=== PATIENT | female | born 1995 | race Caucasian/White ===

== ENCOUNTER → 2016-09-03 | Outpatient (CLI) | payer BC ==
[~2016-09-03] MED LIST: ASPI-999 PO; CHOL20002 PO; CYCL1DRO OP; FLUT9.9S NS; LORA10TA76 PO; PREN1TAB19 PO
--- OUTSIDE RECORDS SUMMARY | 2016-09-03 09:40 | XMS REPORT | Continuity of Care Document ---
Author Author [facility] Organization [facility] Address Unknown Phone Unavailable Care Team Providers Care Hydroelectric Station Operator Name Role Phone Self, Referral PCP Unavailable Source Comments Some departments are not documenting in the electronic medical record. If you do not see the information that you expected, contact Release of Information in the Health Information Management department at [phone] for further assistance in locating additional records.[facility] Active Allergies and Adverse Reactions No Known Allergies Current Medications Prescription Sig. Disp. Refills Start End Date Status Date olopatadine(+) (PATADAY) Place 1 Drop into or Active 0.2 % ophthalmic solution around eye(s) daily. levonorgestrel/ethinyl Take 1 Tab by mouth Active estradiol (AVIANE-28, daily. ALESSE-28) 0.1 mg/20 mcg tablet naproxen sodium(+) Take by mouth. Active (ALEVE) 220 mg tablet ibuprofen (MOTRIN) 200 mg Take 200 mg by mouth Active tablet every 6 hours as needed. loratadine/pseudoephedrin Take 1 Tab by mouth twice Active e (CLARITIN-D 12 HOUR) daily. 5/120 mg tablet Active Problems Problem Noted Date Sicca syndrome (HCC) 02/27/2013 Elevated antinuclear antibody (BALDO) level 02/03/2013 Fatigue 02/03/2013 Myalgia 02/03/2013 Polyarthralgia 02/03/2013 Social History Tobacco Use Types Packs/Day Years Used Date Never Smoker Last Filed Vital Signs Vital Sign Reading Time Taken Blood Pressure 155/96 02/25/2013 10:52 AM CDT Pulse 101 02/25/2013 10:52 AM CDT Temperature 36.7 C (98.1 F) 02/25/2013 10:52 AM CDT Respiratory Rate 19 02/25/2013 10:52 AM CDT Height 1.697 m (5' 6.8") 02/25/2013 10:52 AM CDT Weight 97.07 kg (214 lb) 02/25/2013 10:52 AM CDT Body Mass Index 33.71 02/25/2013 10:52 AM CDT Oxygen Saturation - - Plan of Care Health Maintenance Due Date Last Done Comments Physical (Comprehensive) 2000 Exam Hpv Vaccines (#1) 2004 Pertussis Vaccine 2004 Tetanus Vaccine 2010 Cervical Cancer Screening 2014 Influenza Vaccine 02/21/2016 Results from Last 3 Months Not on file
--- NOTE | 2016-09-03 15:43 | Diagnostic Imaging Report ---
INDICATION: Chronic maternal hypertension during third trimester. TECHNIQUE: Multiple real-time grayscale images were obtained of the gravid uterus. CORRELATION STUDY: None. FINDINGS: Single viable intrauterine , currently in cephalic presentation. There appears to be normal amount of amniotic fluid. Placenta is anterior and without evidence for previa. anatomical evaluation is not performed. Biometrical measurements are as follows: Biparietal diameter 7.20 cm, age 29 weeks 0 days. Head circumference 27.48 cm, age 30 weeks 1 day. Abdominal circumference 23.68 cm, age 28 weeks 0 days. Femur length 5.76 cm, age 30 weeks 2 days. Sonographic estimated age: 29 weeks 3 days. Sonographic estimated date of delivery: November 16, 2016. heart rate: 146 BPM Estimated Weight: 1316 gm (+/- 192 gm) LMP Percentile: 31% IMPRESSION: 1. Single intrauterine in a cephalic presentation. Sonographic estimated age of 29 weeks 3 days for an estimated date of delivery of November 16, 2016. Dictated by: Dictated on workstation # [id number]
== END ==
LOC: RAD 09:37
PROVIDERS: ATTEND Obstetrics & Gynecology
DX: O10.913 Unspecified pre-existing hypertension complicating pregnancy, third trimester (principal); Z3A.29 29 weeks gestation of pregnancy
CPT/HCPCS: 76816

== ENCOUNTER 2016-10-11 23:42 | Outpatient (CLI) | payer BC ==
[~2016-10-11] VITALS: Ht 167.6 cm; Wt 119.7 kg
[2016-10-12 00:07] VITALS: BP 141/82
[2016-10-12] MEDS ORDERED: ASPI-999 PO (00:14)
[2016-10-12] MEDS ORDERED: PREN1TAB19 PO (00:14)
[2016-10-12] MEDS ORDERED: CYCL1DRO OP (00:14)
[2016-10-12] MEDS ORDERED: FLUT9.9S NS (00:14)
[2016-10-12] MEDS ORDERED: LORA10TA76 PO (00:14)
[2016-10-12] MEDS ORDERED: CHOL20002 PO (00:14)
[2016-10-12 00:17] LABS: BILIRUBIN,URINE NEGATIVE (NEGATIVE); KETONES,URINE NEGATIVE (NEGATIVE); LEUKOCYTE ESTERASE ,URINE 1+ (NEGATIVE); NITRITE,URINE NEGATIVE (NEGATIVE); PH,URINE 8 (5-9); PROTEIN,URINE NEGATIVE (NEGATIVE); UROBILINOGEN,URINE NORMAL (NORMAL)
[2016-10-12 00:22] VITALS: BP 149/79
[2016-10-12 00:32] LABS: WBC,URINE RARE /HPF
[2016-10-12 00:42] VITALS: BP 153/90
[2016-10-12 00:51] VITALS: BP 152/88
--- NOTE | 2016-10-14 10:46 | Physician Query-Final Dx ---
RASHAWN GONZALEZ 10/14/16 1046: Clinic Account Progress/Dx Physician Query: Please give diagnosis Date of Service Oct 11, 2016 at 23:42 ANTONI RIVERA MD 10/14/16 1153: Clinic Account Progress/Dx DIAGNOSIS: Diagnosis Pelvic pressure in third trimester RASHAWN GONZALEZ Oct 14, 2016 10:46 ANTONI RIVERA MD Oct 14, 2016 11:53
== END 2016-10-12 01:15 | disposition home or self-care (01) ==
LOC: LDRP 23:42 → WSo 23:42
PROVIDERS: ATTEND Obstetrics & Gynecology
DX: O99.89 Other specified diseases and conditions complicating pregnancy, childbirth and the puerperium (principal); R10.2 Pelvic and perineal pain; Z3A.34 34 weeks gestation of pregnancy
CPT/HCPCS: 81000; 99213

== ENCOUNTER 2016-10-28 13:00 | Outpatient (RCR) | payer BC ==
--- NOTE | 2016-09-30 14:44 | Diagnostic Imaging Report ---
INDICATION: Evaluate growth, maternal hypertension. COMPARISON: None. DISCUSSION: Sonographic evaluation of the gravid uterus was performed. Single live intrauterine at 32 weeks 4 days by sonographic measurements. EDC by today's ultrasound is 11/21/2016. presentation is cephalic. Normal amniotic fluid index. Grade 2 placenta is located anteriorly with no placenta previa. heart rate measures 149 beats per minute. The cervix measures 5.1 cm. Biparietal diameter measures 8.3 cm. Head circumference measures 30.2 cm. Abdominal circumference measures 28.4 cm. Femur length measures 5.8 cm. There is normal breathing, movement, posture and tone, and a normal amniotic fluid index for a biophysical profile score of 8/8. Amniotic fluid index measures 12.8 cm. IMPRESSION: 1. Single live intrauterine at 32 weeks 4 days by sonographic measurements. 2. Normal biophysical profile score of 8/8. Dictated by: Dictated on workstation # [id number]
--- NOTE | 2016-10-07 17:15 | Diagnostic Imaging Report ---
INDICATION: Maternal hypertension, evaluate growth. COMPARISON: 09/30/2016. DISCUSSION: Transabdominal sonographic evaluation of the gravid uterus was performed. Single live intrauterine at 34 weeks 2 days by sonographic measurements. EDC by today's ultrasound is 11/16/2016. presentation is cephalic. Normal amniotic fluid index measuring 9.2 cm. Grade 2 placenta is located anteriorly with no placenta previa. heart rate measures 163 beats per minute. Estimated weight is 2291 g. Biparietal diameter measures 8.3 cm. Head circumference measures 32 cm. Abdominal circumference measures 29.7 cm. Femur length measures 6.5 cm. There was normal breathing, movement, posture and tone, and a normal amniotic fluid index for a normal biophysical profile score of 8/8. IMPRESSION: 1. Single live intrauterine at 34 weeks 2 days by sonographic measurements. 2. Normal biophysical profile score of 8/8. Dictated by: Dictated on workstation # [id number]
--- NOTE | 2016-10-14 17:39 | Diagnostic Imaging Report ---
OB ultrasound. Biophysical profile. INDICATION: O10.913. FINDINGS: The heart rate is 161 beats per minute. presentation is cephalic. Total biophysical profile score is 8 out of 8. The GISELA however is at 5.2. This is compared to 9.2 cm on 10/07/2016. IMPRESSION: Borderline oligohydramnios. Total biophysical profile score is 8 out of 8. Dictated by: Dictated on workstation # [id number]
--- NOTE | 2016-10-21 15:21 | Diagnostic Imaging Report ---
Indication: Maternal hypertension. Comparison: 10/14/2016. Discussion: Transabdominal sonographic evaluation of the gravid uterus was performed. Single live intrauterine is again demonstrated. There is normal breathing, movement, posture and tone, and a normal amniotic fluid index measuring 9.8 cm for a normal biophysical profile score of 8/8, unchanged. presentation is cephalic. heart rate measures 161 beats per minute. Impression: 1. Normal biophysical profile score of 8/8, unchanged. Dictated by: Dictated on workstation # [id number]
--- NOTE | 2016-10-28 16:55 | Diagnostic Imaging Report ---
INDICATION: Growth followup and biophysical profile. TECHNIQUE: Multiple real-time grayscale images were obtained over the gravid uterus. COMPARISON: 10/21/2016 FINDINGS: heart rate is 153 beats per minutes. Placenta is anterior. No placenta previa. position is cephalic. GISELA is 6.6 cm. Biophysical profile criteria are met with total score of 8 out of 8. Biometrical measurements are as follows: Biparietal 9.1 cm, age 37 weeks 0 days. Head circumference 32.8 cm, age 37 weeks 2 days. Abdominal circumference 33.0 cm, age 37 weeks 0 days. Femur length 7.0 cm, age 36 weeks 1 days. Sonographic estimate age: 36 weeks 6 days. Sonographic estimated date of delivery: 11/19/16. Estimated Weight: 3016 gm (+/- +/-16 gm). LMP percentile: 49%. heart rate: 153 beats per minute. number: 1 of 1. IMPRESSION: Biophysical profile score is 8 out of 8. The GISELA is near the lower limits of normal at 6.6 cm. Dictated by: Dictated on workstation # [id number]
[2016-11-05] MEDS ORDERED: OXYC-197 PO (16:32)
[2016-11-05] MEDS ORDERED: IBUP-1773 PO (16:32)
[2016-11-05] MEDS ORDERED: DOCU-143 PO (16:32)
[2016-11-05] MEDS ORDERED: FERR-74 PO (16:33)
== END 2016-12-29 | disposition home or self-care (01) ==
LOC: RAD 13:00
PROVIDERS: ATTEND Obstetrics & Gynecology
DX: O10.913 Unspecified pre-existing hypertension complicating pregnancy, third trimester; Z3A.32 32 weeks gestation of pregnancy
CPT/HCPCS: 76805; 76819

== ENCOUNTER 2016-11-04 19:54 | Inpatient (IN) | payer BC ==
[2016-11-04] VITALS (7 sets, daily range): BP systolic 132–166; BP diastolic 78–95
[~2016-11-04] VITALS: Ht 167.6 cm; Wt 119.8 kg
[2016-11-04] MEDS ORDERED: AMPICILLIN INJECTION 2,000 MG in NS (IVPB) 50 ML IV SCH ×2 (20:44→20:46)
[2016-11-04] MEDS ORDERED: LACTATED RINGERS 1,000 ML IV SCH (20:46)
[2016-11-04] MEDS ORDERED: AMPICILLIN 2000 MG INJECTION (IM/IV) ONE (21:00)
[2016-11-04] MEDS ORDERED: MINERAL OIL CONCENTRATE 99.9% 15 ML UDC TOP PRN (21:00)
[2016-11-04] MEDS ORDERED: NS (IVPB) 50 ML ONE (21:00)
[2016-11-04 21:11] LABS: BILIRUBIN,URINE NEGATIVE (NEGATIVE); KETONES,URINE NEGATIVE (NEGATIVE); LEUKOCYTE ESTERASE ,URINE NEGATIVE (NEGATIVE); NITRITE,URINE NEGATIVE (NEGATIVE); PH,URINE 6 (5-9); PROTEIN,URINE NEGATIVE (NEGATIVE); UROBILINOGEN,URINE NORMAL (NORMAL)
[2016-11-04 21:19] LABS: SQUAMOUS EPITHELIAL CELL,UR 0-2 /HPF; WBC,URINE RARE /HPF
[2016-11-04 21:19] LABS: BASOPHILS % (AUTO) 0 % (0-10); EOSINOPHILS # (AUTO) 0.1 10^3/uL (0.0-0.3); EOSINOPHILS % (AUTO) 1 % (0-10); LYMPHOCYTES # (AUTO) 2.4 X 10^3 (1.0-4.0); LYMPHOCYTES % (AUTO) 23 % (12-44); MEAN CORPUSCULAR HEMOGLOBIN 30 PG (25-34); MEAN CORPUSCULAR HGB CONC 33 G/DL (32-36); MEAN CORPUSCULAR VOLUME 92 FL (80-99); MEAN PLATELET VOLUME 11.7 FL (7.4-10.4); MONOCYTES # (AUTO) 0.7 X 10^3 (0.0-1.0); MONOCYTES % (AUTO) 7 % (0-12); NEUTROPHILS # (AUTO) 7.1 X 10^3 (1.8-7.8); NEUTROPHILS % (AUTO) 70 % (42-75); PLATELET COUNT 179 10^3/uL (130-400); RED BLOOD COUNT 3.51 10^6/uL (4.35-5.85); RED CELL DISTRIBUTION WIDTH 12.5 % (10.0-14.5); WHITE BLOOD COUNT 10.2 10^3/uL (4.3-11.0)
[2016-11-04] MEDS ORDERED: MISOPROSTOL 100 MCG (CYTOTEC) TAB ONE (21:29)
[2016-11-04 21:33] LABS: ALANINE AMINOTRANSFERASE 21 U/L (0-55); ALBUMIN 3.1 G/DL (3.2-4.5); ANION GAP 9 MMOL/L (5-14); ASPARTATE AMINO TRANSFERASE 17 U/L (5-34); BILIRUBIN,TOTAL 0.3 MG/DL (0.1-1.0); BLOOD UREA NITROGEN 4 MG/DL (7-18); BUN/CREATININE RATIO 7; CALCIUM 8.7 MG/DL (8.5-10.1); CARBON DIOXIDE 19 MMOL/L (21-32); CHLORIDE 110 MMOL/L (98-107); GFR ESTIMATED > 60; GLUCOSE 114 MG/DL (70-105); LACTATE DEHYDROGENASE 175 U/L (125-220); POTASSIUM 3.6 MMOL/L (3.6-5.0); SODIUM 138 MMOL/L (135-145); TOTAL PROTEIN 5.8 G/DL (6.4-8.2); URIC ACID 4.3 MG/DL (2.6-7.2)
[2016-11-04] MEDS: MISOPROSTOL 100 MCG (CYTOTEC) TAB PV SCH (21:37)
[2016-11-04] MEDS: LACTATED RINGERS 1,000 ML IV SCH (22:24)
[2016-11-05] VITALS (47 sets, daily range): BP systolic 94–148; BP diastolic 46–94
[2016-11-05] MEDS ORDERED: AMPICILLIN INJECTION 1,000 MG in NS (IVPB) 50 ML IV SCH (00:45)
[2016-11-05] MEDS: MISOPROSTOL 100 MCG (CYTOTEC) TAB PV SCH ×3 (01:50→12:00)
[2016-11-05] MEDS: AMPICILLIN INJECTION 1,000 MG in NS (IVPB) 50 ML IV SCH ×4 (01:50→14:30)
[2016-11-05] MEDS ORDERED: NS (IVPB) 50 ML ONE (05:42)
[2016-11-05] MEDS ORDERED: AMPICILLIN 1000 MG INJECTION (IV/IM) ONE (05:42)
[2016-11-05] MEDS: D5 LR IV SOLUTION 1,000 ML IV SCH ×2 (06:01→09:10)
[2016-11-05] MEDS ORDERED: SUFENTA 0.6MCG/ML BUPIVA 0.125 100 ML ONE (08:06)
[2016-11-05] MEDS ORDERED: OXYTOCIN/NORMAL SALINE 500 ML IV SCH ×2 (08:19→18:45)
[2016-11-05] MEDS ORDERED: BUPIVACAINE 0.25% 30 ML (SENSORCAINE) VIAL ONE (08:54)
[2016-11-05] MEDS ORDERED: LACTATED RINGERS 1,000 ML IV ONE (09:04)
[2016-11-05] MEDS ORDERED: NALOXONE 0.4 MG/ML 1 ML (NARCAN) VIAL IV PRN (09:15)
[2016-11-05] MEDS ORDERED: ONDANSETRON 4 MG/2 ML (SDV) Z0FRAN IV PRN (09:15)
[2016-11-05] MEDS ORDERED: EPIDURAL (SUFENTA 0.6MCG/ML BUPIVA 0.125%) 100 ML BAG EPI SCH (09:15)
[2016-11-05] MEDS ORDERED: BUPIVACAINE 0.25% 30 ML (SENSORCAINE) VIAL INJ ONE (09:15)
--- NOTE | 2016-11-05 11:21 | History & Physical-OB ---
OB - Chief Complaint & HPI Date Date of Admission: Date of Admission: November 04, 2016 at 19:54 Chief Complaint/History OB-Reason for Admission/Chief: Induction of Labor Hx : 1 Hx Para: 0 Expected Date of Delivery: November 18, 2016 Gestational Age in Weeks: 38 Gestational Age in Days: 1 Other reason for admission: 20 y/o G1 @ 38w1d here for IOL for cHTN Denies si/sx pre-eclampsia, is anxious Fetus active no LOF VB CTX c/b cHTN (most BPs normal in , on ASA 81 mg daily with normal baseline labs), class III obesity, GBSuria, h/o hypothyroidism. History of Labs A+ Antibody neg RI Hep B neg HIV neg RPR NR GC/CT neg/neg GBSuria Allergies and Home Medications Allergies Coded Allergies: No Known Drug Allergies (Unverified , 10/12/16) Home Medications Aspirin 81 Mg Tab.chew, 81 MG PO DAILY, (Reported) Cholecalciferol (Vitamin D3) 2,000 Unit Capsule, 2,000 UNIT PO DAILY, (Reported) Cyclosporine 1 Each Droperette, 1 EACH OP DAILY, (Reported) Fluticasone Propionate 9.9 Ml [place].susp, 9.9 ML NS DAILY, (Reported) Vit/Iron Fumarate/FA 1 Each Tablet, 1 EACH PO DAILY, (Reported) OB - History Hx of Present Care: Yes Ultrasounds: Normal mid trimester US Obstetrical Complications: Other (GBSuria) Medical Complications: Other (cHTN, obesity) Delivery History Adverse Rxn to Tranfusion: No Patient Past Medical History see above Social History/Family History HIV/AIDS: No Recent Infectious Disease Expo: No Sexually Transmitted Disease: No Alcohol Use: Denies Use Recreational Drug Use: No Smoking Cessation: Never smoker Immunizations Hepatitis A: Yes Hepatitis B: Yes Tetanus Booster (TDap): Less than 5yrs Rubella: immune RPR/VDRL: Negative GBS Status: Positive HBsAG: Negative OB - Admission Exam Physical Exam Vitals: Vital Signs 11/05/16 11/05/16 11/05/16 11/05/16 09:35 09:45 09:55 10:00 Temp 97.6 Pulse 59 Resp 20 B/P (MAP) 124/62 Pulse Ox 100 HEENT: NCAT Heart: Rhythm Normal Lungs: Clear Abdomen: Gravid Extremities: Normal Reflexes: Normal Cervical Dilatation: Fingertip Effacement: 25% Station: -3 Membranes: Ruptured Amniotic Fluid: Clear Heart Rate: 140's Accelerations: Accelerations Present Decelerations: No Decelerations Short Term Variability: Present Usp Variability: Average (6-25) Contractions on Admission: < 5 Minutes Apart Beltran Scoring Tool (Modified) Dilation (cm): 1-2cm (1) Effacement (%): 0-30% (0) Descent/Station: -3 (0) Cervix Consistency: Medium(1) Cervix Position: Middle/Mid-Position (1) Beltran Score: 3 Labs Laboratory Tests Test 11/04/16 20:15 11/04/16 21:00 Range/Units Urine Color YELLOW Urine Clarity CLEAR Urine pH 6 5-9 Urine Specific [place] 1.030 H 1.016-1.022 Urine Protein NEGATIVE NEGATIVE Urine Glucose (UA) NEGATIVE NEGATIVE Urine Ketones NEGATIVE NEGATIVE Urine Nitrite NEGATIVE NEGATIVE Urine Bilirubin NEGATIVE NEGATIVE Urine Urobilinogen NORMAL NORMAL MG/DL Urine Leukocyte Esterase NEGATIVE NEGATIVE Urine RBC (Auto) NEGATIVE NEGATIVE Urine RBC NONE /HPF Urine WBC RARE /HPF Urine Squamous Epithelial Cells 0-2 /HPF Urine Crystals NONE /LPF Urine Bacteria NEGATIVE /HPF Urine Casts NONE /LPF Urine Mucus NEGATIVE /LPF Urine Culture Indicated NO White Blood Count 10.2 4.3-11.0 10^3/uL Red Blood Count 3.51 L 4.35-5.85 10^6/uL Hemoglobin 10.6 L 11.5-16.0 G/DL Hematocrit 32 L 35-52 % Mean Corpuscular Volume 92 80-99 FL Mean Corpuscular Hemoglobin 30 25-34 PG Mean Corpuscular Hemoglobin Concent 33 32-36 G/DL Red Cell Distribution Width 12.5 10.0-14.5 % Platelet Count 179 130-400 10^3/uL Mean Platelet Volume 11.7 H 7.4-10.4 FL Neutrophils (%) (Auto) 70 42-75 % Lymphocytes (%) (Auto) 23 12-44 % Monocytes (%) (Auto) 7 0-12 % Eosinophils (%) (Auto) 1 0-10 % Basophils (%) (Auto) 0 0-10 % Neutrophils # (Auto) 7.1 1.8-7.8 X 10^3 Lymphocytes # (Auto) 2.4 1.0-4.0 X 10^3 Monocytes # (Auto) 0.7 0.0-1.0 X 10^3 Eosinophils # (Auto) 0.1 0.0-0.3 10^3/uL Basophils # (Auto) 0.0 0.0-0.1 10^3/uL Sodium Level 138 135-145 MMOL/L Potassium Level 3.6 3.6-5.0 MMOL/L Chloride Level 110 H 98-107 MMOL/L Carbon Dioxide Level 19 L 21-32 MMOL/L Anion Gap 9 5-14 MMOL/L Blood Urea Nitrogen 4 L 7-18 MG/DL Creatinine 0.60 0.60-1.30 MG/DL Estimat Glomerular Filtration Rate > 60 BUN/Creatinine Ratio 7 Glucose Level 114 H 70-105 MG/DL Uric Acid 4.3 2.6-7.2 MG/DL Calcium Level 8.7 8.5-10.1 MG/DL Total Bilirubin 0.3 0.1-1.0 MG/DL Aspartate Amino Transf (AST/SGOT) 17 5-34 U/L Alanine Aminotransferase (ALT/SGPT) 21 0-55 U/L Alkaline Phosphatase 230 H 40-136 U/L Lactate Dehydrogenase 175 125-220 U/L Total Protein 5.8 L 6.4-8.2 G/DL Albumin 3.1 L 3.2-4.5 G/DL OB - Assessment/Plan/Diagnosis Plan Plan: Induction Other Plan 20 y/o G1 @ 38w1d here for IOL due to cHTN GBSuria Rh+ RI Class III obesity S/p 3 doses of vaginal cytotec overnight. Cervix without significant change. Attempted cook balloon placement both digitally and with speculum and could not place even after epidural placement. Discussed with patient options and proceeded with AROM/pitocin. Will cautiously ASVD. Epidural in place Ampicillin for GBS ppx Dr. Maycol RIVERA,ANTONI Meade MD November 05, 2016 11:21
[2016-11-05] MEDS ORDERED: METOCLOPRAMIDE INJ 10 MG/2 ML (REGLAN) IV ONE (16:00)
[2016-11-05] MEDS ORDERED: FAMOTIDINE 20MG/2ML IV (PEPCID) IV ONE (16:00)
[2016-11-05] MEDS ORDERED: CITRIC ACID/SOB CIT (BICITRA) 30 ML UDC PO ONE (16:00)
[2016-11-05] MEDS ORDERED: fentaNYL INJECTION 100 MCG/2 ML AMP ONE (16:06)
[2016-11-05] MEDS: LACTATED RINGERS 1,000 ML IV SCH (16:11)
[2016-11-05] MEDS ORDERED: ceFAZolin 2 GM/50 ML NS 50 ML ONE (16:27)
--- NOTE | 2016-11-05 16:30 | Progress Note-Standard ---
Standard Progress Note Progress Notes/Assess & Plan Date Seen 11/05/16 Assess & Plan/Chief Complaint Update Note Pt uncomfortable with epidural, has pelvic pressure and pain with exams SVE 1/70/not engaged FHR 140/mod last/not currently reactive, occasional variable decels with contractions lasting < one min, belinda > 90 bpm I reviewed with Dago that I am concerned that the head is not engaged. That, combined with her persistent category 2 tracing throughout the day when on pitocin, concerns me that we may not be able to achieve a vaginal delivery. She is understanding of this and requests a cs at this time which I think is reasonable. I did go over risks/benefits/alternatives to delivery with her. Risks reviewed include bleeding, infection, damage to surrounding structures (bowel, bladder, uterus, fetus). Will proceed to OR now. Labs Laboratory Tests 11/04/16 21:00 ANTONI RIVERA MD November 05, 2016 16:30
[2016-11-05] MEDS ORDERED: DOCU-143 PO (16:32)
[2016-11-05] MEDS ORDERED: OXYC-197 PO (16:32)
[2016-11-05] MEDS ORDERED: IBUP-1773 PO (16:32)
[2016-11-05] MEDS ORDERED: FERR-74 PO (16:33)
[2016-11-05] MEDS ORDERED: OXYTOCIN/NORMAL SALINE 1,000 ML IV ONE (16:37)
[2016-11-05] MEDS ORDERED: KETOROLAC 30 MG/ML VIAL ONE (16:37)
[2016-11-05] MEDS ORDERED: KETAMINE HCL 100 MG/ML 5 ML VIAL ONE (16:41)
[2016-11-05] MEDS ORDERED: EPINEPHrine INJECTION 1 MG/ML AMP ONE (16:41)
[2016-11-05] MEDS ORDERED: LIDOCAINE PF 2% 10 ML (XYLOCAINE) AMP ONE (16:44)
[2016-11-05] MEDS ORDERED: BUPIVACAINE 0.5% 30 ML (SENSORCAINE) VIAL ONE (17:12)
[2016-11-05] MEDS ORDERED: ONDANSETRON 4 MG/2 ML (SDV) Z0FRAN ONE (17:12)
[2016-11-05] MEDS: KETOROLAC 30 MG/ML VIAL IVP SCH ×2 (17:30→23:54)
--- NOTE | 2016-11-05 17:32 | Cesarean Section Operative ---
Procedure Procedure Note Date of Procedure: 11/05/16 Pre-operative Diagnosis: Dago Valdez is a 20 y/o G1 @ 38w1d with IOL for chronic HTN with category 2 tracing remote from delivery, suspected cephalopelvic disproportion GBSuria Class III obesity Post-operative Diagnosis: Same Procedure: Primary low transverse section Physician: Irlanda Cassidy MD Estimated blood loss: 700 mL Disposition: Recovery room, stable Specimens: Placenta to pathology, cord blood to lab Findings: Viable male , Apgars 8/9, weight [id number], intact placenta, 3vc, normal appearing uterus, tubes, and ovaries. Indications: Dago Valdez is a 20 y/o G1 @ 38w1d who presented last evening for induction of labor. Cytotec x 3 doses was administered. She received an epidural for analgesia. Cook balloon placement was attempted however despite both speculum and digitally attempting, it was unsuccessful. AROM occurred with clear fluid and pitocin was started. The head did not descend in the pelvis, and she made minimal waste/materials exchange specialist a 20 hour timespan. The heart rate was also noted to be a category 2 tracing whenever pitocin was started. I also had suspicion for cephalopelvic disproportion given her bony pelvic structure. We did elect to proceed with primary delivery given these findings. Procedure Details: The patient was seen in pre-op and the procedure was discussed with the patient in full, including the risks, benefits, and alternatives. All questions were answered. The patient was taken to the operating room and a time out was performed, verifying patient and procedure. After spinal anesthesia was placed by our anesthesia colleagues, the patient was placed in the dorsal supine with leftward tilt for uterine displacement. Her abdomen was then prepped and draped in the typical sterile fashion. A Pfannenstiel skin incision was made using a scalpel and carried down through the underlying fascia. The fascia was incised in the midline and tented up using Chase clamps. On both the inferior and superior fascia side the rectus muscle was dissected off bluntly and sharply using Schuster scissors. The peritoneum was identified and entered bluntly in the midline. This was then stretched laterally using manual strength. After entering the abdominal cavity and confirming lack of intraperitoneal adhesions, an extra-large Fredi retractor was placed and the lower uterine segment was visualized. A bladder flap was created with the use of Metzenbaum scissors. A scalpel was utilized to make a low transverse uterine incision. The infant's head was grasped and brought to the level of the incision. Fundal pressure was applied and infant was delivered without difficulty. Mouth and nares were suctioned with bulb suction. After the umbilical cord was clamped and cut, the infant was handed off to the pediatric staff. A sample of cord blood was then obtained. The placenta was delivered intact via uterine massage. The uterus was cleared of all clots and debris. The uterine incision was closed using 0 Vicryl in a running locked fashion. A second imbricated layer was placed using 0 Vicryl in a running fashion as well. Again the hysterotomy site was examined and hemostasis was observed. The bilateral tubes and ovaries appeared normal. The abdominal gutters were cleared of all clots and debris. A final check of the uterine incision showed it to be hemostatic. Intercede was placed on the hysterotomy site. The peritoneum was closed using 3-0 Vicryl in a running fashion. The fascia was closed with 0 Vicryl in a running fashion. The subcutaneous space was hemostatic, and irrigated. The subcutaneous space was closed with 3-0 Vicryl in several single interrupted stitches. The skin was then closed using 4-0 Monocryl in a running subcuticular fashion. The skin edges were reapproximated together and were hemostatic. A pressure dressing was applied. All sponge, lap and needle counts were correct at the end of the procedure per nursing. Vitals - Labs Vital Signs - I&O Vital Signs Date Time Temp Pulse Resp B/P (MAP) Pulse Ox O2 Delivery O2 Flow Rate FiO2 11/05/16 14:00 67 18 142/82 11/05/16 13:45 66 18 127/75 11/05/16 13:30 73 18 146/73 11/05/16 13:15 58 18 140/76 11/05/16 13:00 98.7 65 18 140/74 11/05/16 12:45 66 18 137/82 11/05/16 12:30 66 18 136/83 11/05/16 12:15 65 18 139/75 11/05/16 12:00 63 18 139/72 11/05/16 11:45 61 18 142/71 11/05/16 11:30 70 18 135/85 100 11/05/16 11:15 66 18 114/56 100 11/05/16 11:00 97.4 71 18 132/78 100 11/05/16 10:45 57 18 131/73 100 11/05/16 10:30 65 18 95/46 100 11/05/16 10:15 54 18 94/47 100 11/05/16 10:00 59 100 11/05/16 09:55 71 124/62 100 11/05/16 09:45 78 20 130/60 99 11/05/16 09:35 97.6 67 107/53 100 11/05/16 09:30 70 20 108/54 99 11/05/16 09:25 88 18 100/56 99 11/05/16 09:20 77 18 110/56 99 11/05/16 09:15 104 20 142/66 100 11/05/16 09:10 89 18 120/69 99 11/05/16 09:00 104 20 142/66 100 11/05/16 08:57 77 137/76 99 11/05/16 08:53 85 139/75 99 11/05/16 08:45 84 148/83 99 11/05/16 07:03 76 20 131/85 11/05/16 06:30 97.2 77 18 134/84 11/05/16 05:30 138/94 11/05/16 05:00 74 18 125/68 11/05/16 04:00 97.6 63 20 121/68 11/05/16 02:30 73 20 121/69 11/05/16 01:30 77 20 129/75 11/05/16 00:30 88 18 121/74 11/04/16 23:30 98.2 11/04/16 23:00 83 18 132/82 11/04/16 22:40 82 20 142/88 11/04/16 22:30 77 18 135/78 11/04/16 22:00 94 20 151/83 11/04/16 21:15 96 18 139/78 11/04/16 20:20 166/88 11/04/16 20:15 98.6 115 20 161/95 I & O 11/05/16 07:00 Intake Total 1150 ml Balance 1150 ml Labs Laboratory Tests 11/04/16 20:15: Urine Color YELLOW, Urine Clarity CLEAR, Urine pH 6, Urine Specific [place] 1.030H, Urine Protein NEGATIVE, Urine Glucose (UA) NEGATIVE, Urine Ketones NEGATIVE, Urine Nitrite NEGATIVE, Urine Bilirubin NEGATIVE, Urine Urobilinogen NORMAL, Urine Leukocyte Esterase NEGATIVE, Urine RBC (Auto) NEGATIVE, Urine RBC NONE, Urine WBC RARE, Urine Squamous Epithelial Cells 0-2, Urine Crystals NONE, Urine Bacteria NEGATIVE, Urine Casts NONE, Urine Mucus NEGATIVE, Urine Culture Indicated NO 11/04/16 21:00: White Blood Count 10.2, Red Blood Count 3.51L, Hemoglobin 10.6L, Hematocrit 32L , Mean Corpuscular Volume 92, Mean Corpuscular Hemoglobin 30, Mean Corpuscular Hemoglobin Concent 33, Red Cell Distribution Width 12.5, Platelet Count 179, Mean Platelet Volume 11.7H, Neutrophils (%) (Auto) 70, Lymphocytes (%) (Auto) 23 , Monocytes (%) (Auto) 7, Eosinophils (%) (Auto) 1, Basophils (%) (Auto) 0, Neutrophils # (Auto) 7.1, Lymphocytes # (Auto) 2.4, Monocytes # (Auto) 0.7, Eosinophils # (Auto) 0.1, Basophils # (Auto) 0.0, Sodium Level 138, Potassium Level 3.6, Chloride Level 110H, Carbon Dioxide Level 19L, Anion Gap 9, Blood Urea Nitrogen 4L, Creatinine 0.60, Estimat Glomerular Filtration Rate > 60, BUN/ Creatinine Ratio 7, Glucose Level 114H, Uric Acid 4.3, Calcium Level 8.7, Total Bilirubin 0.3, Aspartate Amino Transf (AST/SGOT) 17, Alanine Aminotransferase ( ALT/SGPT) 21, Alkaline Phosphatase 230H, Lactate Dehydrogenase 175, Total Protein 5.8L, Albumin 3.1L IRLANDA CASSIDY MD November 05, 2016 17:32
--- NOTE | 2016-11-05 17:33 | Discharge Inst-Women's Service ---
Discharge Inst-Women's Serv Depart Medication/Instructions New, Converted or Re-Newed RX: RX on Chart Final Diagnosis TIUP, chronic HTN, intolerance to labor, primary LTCS Consults/Follow Up Additional Follow Up: Yes Orders/Referrals 7-[address] Cassidy for BP check/incision check [address] Cassidy for visit Activity Driving Instructions: No Driving for 1 Week (or while taking narcotic pain medications) NO SMOKING: NO SMOKING Nothing Inside Vagina: No Douching, No [place], No Tampons Other Activity No strenuous activity No lifting > 10 lb Diet Discharge Diet: No Restrictions Symptoms to Report to : Bleeding Excessive, Pain Increased, Fever Over 101 Degrees F, Pain/Pressure in Chest, Vaginal Bleeding Increase, Dizziness/Fainting , Nausea/Vomiting, Shortness of Breath For Any Problems or Questions: Contact Your Physician, Go to Emergency Room Skin/Wound Care Infection Signs and Symptoms: Increased Redness, Foul Odor of Wound, Increased Drainage Operative Area Clean and Dry: Keep Incision Clean/Dry Stitches/[place]/Dermabond: Dermabond, Care of Stitches Bathing Instructions: ANTONI Kirby MD November 05, 2016 17:33
[2016-11-05] MEDS ORDERED: oxyCODONE/APAP 5/325MG (PERCOCET 5) TABLET PO PRN (18:45)
[2016-11-05] MEDS ORDERED: morphine INJ 4 MG/ML 1 ML (VIAL/SYRINGE) IVP PRN (18:45)
[2016-11-05] MEDS: DOCUSATE SODIUM 100 MG (COLACE) CAP PO SCH (21:48)
[2016-11-05] MEDS ORDERED: ACETAMINOPHEN 500 MG TAB (TYLENOL) PO PRN (22:00)
[2016-11-06 00:55] VITALS: BP 126/77
[2016-11-06 05:40] LABS: BASOPHILS % (AUTO) 0 % (0-10); EOSINOPHILS # (AUTO) 0.1 10^3/uL (0.0-0.3); EOSINOPHILS % (AUTO) 1 % (0-10); LYMPHOCYTES # (AUTO) 1.5 X 10^3 (1.0-4.0); LYMPHOCYTES % (AUTO) 16 % (12-44); MEAN CORPUSCULAR HEMOGLOBIN 30 PG (25-34); MEAN CORPUSCULAR HGB CONC 33 G/DL (32-36); MEAN CORPUSCULAR VOLUME 92 FL (80-99); MEAN PLATELET VOLUME 11.6 FL (7.4-10.4); MONOCYTES # (AUTO) 0.7 X 10^3 (0.0-1.0); MONOCYTES % (AUTO) 8 % (0-12); NEUTROPHILS # (AUTO) 7.3 X 10^3 (1.8-7.8); NEUTROPHILS % (AUTO) 76 % (42-75); PLATELET COUNT 159 10^3/uL (130-400); RED BLOOD COUNT 3.08 10^6/uL (4.35-5.85); RED CELL DISTRIBUTION WIDTH 12.4 % (10.0-14.5); WHITE BLOOD COUNT 9.7 10^3/uL (4.3-11.0)
[2016-11-06] MEDS: KETOROLAC 30 MG/ML VIAL IVP SCH (06:33)
[2016-11-06 06:50] VITALS: BP 147/88
--- NOTE | 2016-11-06 08:31 | Postpartum Progress Note ---
Post Op Post-operative Day #1 s/p PLTCS for intolerance to labor, failure to descend/progress, Subjective: Patient is without complaints. Ambulating, voiding after kang removed. Tolerating a regular diet without nausea or vomiting. Normal lochia. Pain is well controlled with oral pain medications. Passing flatus. Objective: Laboratory Tests Test 11/06/16 05:25 Range/Units White Blood Count 9.7 4.3-11.0 10^3/uL Red Blood Count 3.08 L 4.35-5.85 10^6/uL Hemoglobin 9.2 L 11.5-16.0 G/DL Hematocrit 28 L 35-52 % Mean Corpuscular Volume 92 80-99 FL Mean Corpuscular Hemoglobin 30 25-34 PG Mean Corpuscular Hemoglobin Concent 33 32-36 G/DL Red Cell Distribution Width 12.4 10.0-14.5 % Platelet Count 159 130-400 10^3/uL Mean Platelet Volume 11.6 H 7.4-10.4 FL Neutrophils (%) (Auto) 76 H 42-75 % Lymphocytes (%) (Auto) 16 12-44 % Monocytes (%) (Auto) 8 0-12 % Eosinophils (%) (Auto) 1 0-10 % Basophils (%) (Auto) 0 0-10 % Neutrophils # (Auto) 7.3 1.8-7.8 X 10^3 Lymphocytes # (Auto) 1.5 1.0-4.0 X 10^3 Monocytes # (Auto) 0.7 0.0-1.0 X 10^3 Eosinophils # (Auto) 0.1 0.0-0.3 10^3/uL Basophils # (Auto) 0.0 0.0-0.1 10^3/uL Vital Sign - Last 12Hours 11/05/16 11/06/16 11/06/16 21:40 00:55 06:50 Temp 98.5 97.9 97.2 Pulse 85 75 92 Resp B/P (MAP) 145/87 126/77 147/88 Pulse Ox 97 96 96 Intake and Output 11/06/16 00:00 Intake Total 50 ml Output Total 3000 ml Balance -2950 ml Physical Exam: General - Alert and oriented, no apparent distress Abdomen - Soft, appropriately tender to palpation, non-distended, fundus firm at umbilicus Incision - clean, dry and intact; no erythema or induration, no drainage Extremities - 1+ edema, negative Hernandez's bilaterally Assessment: 1. post-operative day # 1, status post PLTCS, FTD/CPD. Recovering well, hemodynamically stable 2. Acute blood loss anemia Plan: Routine post-operative care. Encourage breast feeding. Encourage ambulation. VTE prophylaxis: SCDs. Ferrous sulfate supplementation. Plan for discharge tomorrow or Thursday Vitals - Labs Vital Signs - I&O Vital Signs Date Time Temp Pulse Resp B/P (MAP) Pulse Ox O2 Delivery O2 Flow Rate FiO2 11/06/16 06:50 97.2 92 18 147/88 96 11/06/16 00:55 97.9 75 18 126/77 96 11/05/16 21:40 98.5 85 18 145/87 97 11/05/16 16:29 71 18 119/56 11/05/16 16:15 82 18 133/75 11/05/16 16:00 102 18 128/64 11/05/16 15:46 98.4 11/05/16 15:45 78 18 122/57 11/05/16 15:30 69 18 115/56 11/05/16 15:15 82 18 116/64 11/05/16 15:00 71 18 117/63 11/05/16 14:45 75 18 146/81 11/05/16 14:30 99.1 80 18 128/59 11/05/16 14:15 75 18 146/81 11/05/16 14:00 67 18 142/82 11/05/16 13:45 66 18 127/75 11/05/16 13:30 73 18 146/73 11/05/16 13:15 58 18 140/76 11/05/16 13:00 98.7 65 18 140/74 11/05/16 12:45 66 18 137/82 11/05/16 12:30 66 18 136/83 11/05/16 12:15 65 18 139/75 11/05/16 12:00 63 18 139/72 11/05/16 11:45 61 18 142/71 11/05/16 11:30 70 18 135/85 100 11/05/16 11:15 66 18 114/56 100 11/05/16 11:00 97.4 71 18 132/78 100 11/05/16 10:45 57 18 131/73 100 11/05/16 10:30 65 18 95/46 100 11/05/16 10:15 54 18 94/47 100 11/05/16 10:00 59 100 11/05/16 09:55 71 124/62 100 11/05/16 09:45 78 20 130/60 99 11/05/16 09:35 97.6 67 107/53 100 11/05/16 09:30 70 20 108/54 99 11/05/16 09:25 88 18 100/56 99 11/05/16 09:20 77 18 110/56 99 11/05/16 09:15 104 20 142/66 100 11/05/16 09:10 89 18 120/69 99 11/05/16 09:00 104 20 142/66 100 11/05/16 08:57 77 137/76 99 11/05/16 08:53 85 139/75 99 11/05/16 08:45 84 148/83 99 I & O 11/06/16 07:00 Intake Total 1575 ml Output Total 3000 ml Balance -1425 ml Labs Laboratory Tests 11/06/16 05:25: White Blood Count 9.7, Red Blood Count 3.08L, Hemoglobin 9.2L, Hematocrit 28L, Mean Corpuscular Volume 92, Mean Corpuscular Hemoglobin 30, Mean Corpuscular Hemoglobin Concent 33, Red Cell Distribution Width 12.4, Platelet Count 159, Mean Platelet Volume 11.6H, Neutrophils (%) (Auto) 76H, Lymphocytes (%) (Auto) 16, Monocytes (%) (Auto) 8, Eosinophils (%) (Auto) 1, Basophils (%) (Auto) 0, Neutrophils # (Auto) 7.3, Lymphocytes # (Auto) 1.5, Monocytes # (Auto) 0.7, Eosinophils # (Auto) 0.1, Basophils # (Auto) 0.0 DEVONTE CURTIS DO November 06, 2016 08:31
[2016-11-06] MEDS: FERROUS SULF 325 MG (IRON) TAB PO SCH ×2 (09:45→18:07)
[2016-11-06] MEDS: DOCUSATE SODIUM 100 MG (COLACE) CAP PO SCH ×2 (09:45→20:31)
[2016-11-06] MEDS: ENOXAPARIN 40 MG/0.4 ML (LOVENOX) SYR SC SCH (09:46)
[2016-11-06] MEDS: CATHETER FLUSH 10 ML SYR IV SCH (10:18)
--- NOTE | 2016-11-06 10:39 | Anesthesia-Regional Post-Op ---
Regional Patient Condition Mental Status: Alert, Oriented x3 Circulation: Same as Pre-Op Headache: Absent Sensation: Full Recovery Motor Block: Absent Post Op Complications Complications None Follow Up Care/Instructions Patient Instructions None needed. Anesthesia/Patient Condition Patient is doing well, no complaints, stable vital signs, no apparent adverse anesthesia problems. No complications reported per nursing. D/C home per [facility] Criteria: No SLIM MATUTE CRNA November 06, 2016 10:39
[2016-11-06 11:20] VITALS: BP 128/76
[2016-11-06] MEDS: IBUPROFEN 800 MG (MOTRIN) TAB PO SCH ×3 (13:12→23:38)
[2016-11-06 16:40] VITALS: BP 124/79
[2016-11-06] MEDS ORDERED: IBUPROFEN 800 MG (MOTRIN) TAB PO SCH (18:00)
[2016-11-06 23:40] VITALS: BP 127/79
[2016-11-07 06:05] VITALS: BP 115/67
[2016-11-07] MEDS: IBUPROFEN 800 MG (MOTRIN) TAB PO SCH ×2 (06:08→12:06)
--- NOTE | 2016-11-07 08:28 | Postpartum Progress Note ---
Post Op Post-operative Day #2 Subjective: Patient is without complaints. Ambulating, voiding well. Tolerating a regular diet without nausea or vomiting. Normal lochia. Pain is well controlled with oral pain medications. Passing flatus. Breast feeding. Desires d/c home today. Objective: VS - Last 72 Hours, by Label 11/04/16 5/17 17 / 20:15 20:20 21:15 22:00 Temp 98.6 Pulse 115 96 94 Resp 20 18 20 B/P (MAP) 161/95 166/88 139/78 151/83 16/17 5/17 5//17 5//17 22:30 22:40 23:00 23:30 Temp 98.2 Pulse 77 82 83 Resp 18 20 18 B/P (MAP) 135/78 142/88 132/82 17 517 517 5 00:30 01:30 02:30 04:00 Temp 97.6 Pulse 88 77 73 63 Resp 18 20 20 20 B/P (MAP) 121/74 129/75 121/69 121/68 11/05/17 5/17 5//17 5/ 05:00 05:30 06:30 07:03 Temp 97.2 Pulse 74 77 76 Resp 18 18 20 B/P (MAP) 125/68 138/94 134/84 131/85 17 517 5/17/17 5 08:45 08:53 08:57 09:00 Pulse 84 85 77 104 Resp 20 B/P (MAP) 148/83 139/75 137/76 142/66 Pulse Ox 99 99 99 100 17/17 5/17/17 5/17/17 5/17/17 09:10 09:15 09:20 09:25 Pulse 89 104 77 88 Resp 18 20 18 18 B/P (MAP) 120/69 142/66 110/56 100/56 Pulse Ox 99 100 99 99 11/05/17 5//17 5//17 5/17 09:30 09:35 09:45 09:55 Temp 97.6 Pulse 70 67 78 71 Resp 20 20 B/P (MAP) 108/54 107/53 130/60 124/62 Pulse Ox 99 100 99 100 5/17/17 5/17/17 5/17/17 5/17/17 10:00 10:15 10:30 10:45 Pulse 59 54 65 57 Resp 18 18 18 B/P (MAP) 94/47 95/46 131/73 Pulse Ox 100 100 100 100 5/17/17 5/17/17 5/17/17 5/17/17 11:00 11:15 11:30 11:45 Temp 97.4 Pulse 71 66 70 61 Resp 18 18 18 18 B/P (MAP) 132/78 114/56 135/85 142/71 Pulse Ox 100 100 100 5/17/17 5/17/17 5/17/17 5/17/17 12:00 12:15 12:30 12:45 Pulse 63 65 66 66 Resp 18 18 18 18 B/P (MAP) 139/72 139/75 136/83 137/82 5/17/17 5/17/17 5/17/17 5/17/17 13:00 13:15 13:30 13:45 Temp 98.7 Pulse 65 58 73 66 Resp 18 18 18 18 B/P (MAP) 140/74 140/76 146/73 127/75 5/17/17 5/17/17 5/17/17 5/17/17 14:00 14:15 14:30 14:45 Temp 99.1 Pulse 67 75 80 75 Resp 18 18 18 18 B/P (MAP) 142/82 146/81 128/59 146/81 5/17/17 5/17/17 5/17/17 5/17/17 15:00 15:15 15:30 15:45 Pulse 71 82 69 78 Resp 18 18 18 18 B/P (MAP) 117/63 116/64 115/56 122/57 5/17/17 5/17/17 5/17/17 5/17/17 15:46 16:00 16:15 16:29 Temp 98.4 Pulse 102 82 71 Resp 18 18 18 B/P (MAP) 128/64 133/75 119/56 5/17/17 5/18/17 5/18/17 5/18/17 21:40 00:55 06:50 11:20 Temp 98.5 97.9 97.2 97.9 Pulse 85 75 92 89 Resp 18 18 18 18 B/P (MAP) 145/87 126/77 147/88 128/76 Pulse Ox 97 96 96 99 11/06/16 11/06/16 11/07/16 16:40 23:40 06:05 Temp 97.2 97.0 96.8 Pulse 81 81 78 Resp 18 16 16 B/P (MAP) 124/79 127/79 115/67 Pulse Ox 99 97 96 Physical Exam: General - Alert and oriented, no apparent distress Abdomen - Soft, appropriately tender to palpation, non-distended, fundus firm at umbilicus Incision - clean, dry and intact; no erythema or induration, no drainage Extremities - no edema, negative Hernandez's bilaterally no new labs Assessment: 20 y/o post-operative day # 2, status post PLTCS for intolerance to labor/suspected CPD. Recovering well, hemodynamically stable Acute blood loss anemia Hgb 9 Chronic HTN BPs all mild range or better, no si/sx pre-eclampsia Class III obesity Plan: Routine post-operative care. Encourage breast feeding. Encourage ambulation. VTE prophylaxis: SCDs and lovenox while inpt Ferrous sulfate supplementation. Plan for discharge today. Vitals - Labs Vital Signs - I&O Vital Signs Date Time Temp Pulse Resp B/P (MAP) Pulse Ox O2 Delivery O2 Flow Rate FiO2 11/07/16 06:05 96.8 78 16 115/67 96 11/06/16 23:40 97.0 81 16 127/79 97 11/06/16 16:40 97.2 81 18 124/79 99 11/06/16 11:20 97.9 89 18 128/76 99 I & O 11/07/16 07:00 Intake Total 7250 ml Output Total 8000 ml Balance -750 ml ANTONI RIVERA MD November 07, 2016 08:28
[2016-11-07] MEDS: FERROUS SULF 325 MG (IRON) TAB PO SCH (08:31)
[2016-11-07] MEDS: DOCUSATE SODIUM 100 MG (COLACE) CAP PO SCH (08:31)
[2016-11-07] MEDS: ENOXAPARIN 40 MG/0.4 ML (LOVENOX) SYR SC SCH (08:32)
[2016-11-07 12:05] VITALS: BP 137/87
== END 2016-11-07 16:50 | disposition home or self-care (01) | DRG 765 ==
LOC: LDRP 19:54
PROVIDERS: ADMIT Obstetrics & Gynecology; ATTEND Obstetrics & Gynecology
PROC: 3E0P05Z Introduction of Adhesion Barrier into Female Reproductive, Open Approach (ICD-10-PCS; 2016-11-05)
PROC: 10D00Z1 Extraction of Products of Conception, Low, Open Approach (ICD-10-PCS; principal; 2016-11-05 16:28)
DX: O10.913 Unspecified pre-existing hypertension complicating pregnancy, third trimester (principal); O99.213 Obesity complicating pregnancy, third trimester; E66.9 Obesity, unspecified; Z68.41 Body mass index [BMI] 40.0-44.9, adult; O99.283 Endocrine, nutritional and metabolic diseases complicating pregnancy, third trimester; E03.9 Hypothyroidism, unspecified; O76 Abnormality in fetal heart rate and rhythm complicating labor and delivery; O33.9 Maternal care for disproportion, unspecified; O99.03 Anemia complicating the puerperium; D64.9 Anemia, unspecified; O99.820 Streptococcus B carrier state complicating pregnancy; Z3A.38 38 weeks gestation of pregnancy; Z37.0 Single live birth
CPT/HCPCS: 36415; 80053; 81000; 83615; 84550; 85025; 86850; 86900; 86901; 94664